=== PATIENT | male | born 1985 | race Caucasian/White ===

== ENCOUNTER 2016-10-15 16:52 | Emergency (ER) | payer OTHER ==
[2015-10-09 17:37] VITALS: BP 101/43; PULSE 76; O2SAT 98
[~2016-10-15 16:52] MED LIST: antidepressant
[2016-10-15 17:10] VITALS: BP 116/75; PULSE 107; O2SAT 98
== END 2016-10-15 18:38 | disposition left against medical advice (07) ==
LOC: SED 16:52
DX: Z53.21 Procedure and treatment not carried out due to patient leaving prior to being seen by health care provider (principal)

== ENCOUNTER 2017-03-14 18:11 | Emergency (ER) | payer OTHER ==
[~2017-03-14] VITALS: Ht 167.6 cm; Wt 77.3 kg
[2017-03-14 18:16] VITALS: BP 154/90; PULSE 95; RESP 16; O2SAT 97
[2017-03-14 18:52] LABS: BASOPHILS % (AUTO) 0.4 % (0-3); EOSINOPHILS % (AUTO) 1.3 % (0-5); Mean Corpuscular Hemoglobin 27.8 pg (27.0-35.0); Mean Corpuscular Volume 82.9 fL (81-100); NEUTROPHILS % (AUTO) 55.2 % (40-74); Platelet Count 244 bil/L (150-400)
--- NOTE | 2017-03-14 20:11 | ED.REPORT ---
[facility]-Medical Clearance Date of Service Mar 14, 2017 ED Provider: Arley Zimmer PA-C Maurisio is otherwise healthy 31-year-old male brought in by car salesperson for clearance for incarceration. Patient reports a history of IV heroin use. He also complains of night sweats, nausea, feeling ill, back pain. States he symptoms are alleviated by heroin. Also complains of sores forming on his skin. States he was told he needed to come the emergency department to be evaluated for endocarditis. He is concerned he has a "blood infection" Nursing Notes Stated Complaint: FIT FOR [facility] Chief Complaint: General Complaint Nursing Notes Reviewed: Yes Allergies: Coded Allergies: No Known Allergies (Verified Allergy, Unknown, 03/14/17) Miscellaneous Medications ([antidepressant]) General Time Seen by Provider: 19:42 Chief Complaint : Other (fit for detention) Past Medical History Past Medical History none reported Past Surgical History none reported Smoking History Current Every Day Smoker, Current Some Day Smoker Social History Drug Use: IV drugs, Meth Ambulatory Status Independent Review of Systems Review of Systems Note: Negative unless stated otherwise in history of present illness Physical Exam General: Well appearing, well developed, well nourished, no acute distress. Mildly anxious appearing, seated on the gurney in handcuffs. Head: Atraumatic, normocephalic. Eyes: No scleral icterus or injection. No discharge. Vision grossly intact. ENT: Voice clear, hearing grossly intact. Respiratory: Regular rate and rhythm. Breath sounds present, clear to auscultation and equal bilaterally. No respiratory distress. No increased work of breathing, speaks in complete sentences. Cardiovascular: Regular rate and rhythm, without murmur, gallop or rub despite careful auscultation. No pedal edema. Gastrointestinal: Abdomen flat and non-tender without guarding or rebound. Bowel sounds normoactive. Skin: Warm and dry. Many 1 cm areas of excoriation in various states of healing on the arms legs and shoulders. Tract foley visible on bilateral arms. No areas of redness, swelling and fluctuance. Neurological: Grossly nonfocal. Psychological: Alert and oriented. Speech appropriate, linear and logical. Behavior appropriate. Initial Vital Signs Vital Signs (First) Date Time Temp Pulse Resp B/P Pulse Ox O2 Delivery O2 Flow Rate FiO2 03/14/17 18:16 37.5 95 16 154/90 97 Room Air Elevated blood pressure Interpretation & Diagnostics Lab Results Interpretation Result Diagram: 03/14/17 1843 03/14/17 1843 Test 03/14/17 18:43 White Blood Count 5.4th/mm3 (3.8-10.1) Red Blood Count 5.15mil/mm3 (4.40-5.80) Hemoglobin 14.3g/dL (13.8-17.2) Hematocrit 42.7% (41.0-50.0) Mean Corpuscular Volume 82.9fL (81-100) Mean Corpuscular Hemoglobin 27.8pg (27.0-35.0) Mean Corpuscular Hemoglobin Concent 33.5% (32.0-37.0) Red Cell Distribution Width 13.3% (12.3-15.4) Platelet Count 244bil/L (150-400) Neutrophils (%) (Auto) 55.2% (40-74) Lymphocytes (%) (Auto) 34.1% (14-46) Monocytes (%) (Auto) 9.0% (4-12) Eosinophils (%) (Auto) 1.3% (0-5) Basophils (%) (Auto) 0.4% (0-3) Sodium Level 142mEq/L (134-144) Potassium Level 4.3mEq/L (3.5-5.2) Chloride Level 102mEq/L (97-108) Carbon Dioxide Level 24mmol/L (18-29) Blood Urea Nitrogen 8mg/dL (6-20) Creatinine 0.72mg/dL (0.76-1.27) Estimat Glomerular Filtration Rate 134mL/min (>59) Glucose Level 116mg/dL (60-99) Calcium Level 9.5mg/dL (8.5-10.1) Total Bilirubin 0.2mg/dL (0.0-1.2) Aspartate Amino Transf (AST/SGOT) 39U/L (0-50) Alanine Aminotransferase (ALT/SGPT) 49U/L (0-44) Alkaline Phosphatase 67U/L (25-150) Total Protein 7.9g/dL (6.4-8.4) Albumin 4.5g/dL (3.4-5.0) Hold Cano Top Tube Received (Received) Re-Eval/Medical Decision Med Decision/Clinical Course 31-year-old male brought in for clearance for incarceration. History of IV heroin abuse heroin abuse. Reports history of night sweats, back pain, nausea, vomiting. States he was told he might have a blood infection and should be checked out. The skull exam is benign, number of small excoriations arms legs chest. No evidence of cellulitis, abscess. Negative Heart murmur despite careful auscultation. Lung sounds clear and equal. Vital signs are normal, CBC and CMP show only minor abnormalities, not thought to be clinically relevant. Negative leukocytosis. I reassured against systemic illness, local cellulitis, endocarditis. I believe is medically cleared for incarceration. Advised follow-up with [facility] and provided emergency return precautions. Patient is disappointed with this finding. Discharge & Departure Impression: Primary Impression: Medical clearance for incarceration Additional Impressions: Heroin abuse Skin excoriation Disposition: Home Discharge Condition All VS Reviewed: Yes Condition: Stable Additional Instructions: Evaluation in the emergency department for medical clearance for detention includes interview, physical examination and lab work all of which are reassuring that you do not have an immediately dangerous medical condition. There is no indication that you have an infection. I recommend dressing the wounds under skin with antibiotic ointment and Band- Aids to prevent absent-minded picking. Follow-up with the [facility] for any further concerns. Return to the emergency department for fever, chest pain, vomiting. Referrals: Cj Ashford MD (PCP) EDSupervising Provider for APC: Trenton Greenwood MD copies to: Cj Ashford MD, Seth PA-C Mar 14, 2017 20:11
[2017-03-14 20:30] VITALS: BP 142/96; PULSE 88; RESP 16; O2SAT 98
[2017-03-14 20:31] VITALS: BP 142/96; PULSE 88; RESP 16; O2SAT 98
== END 2017-03-14 20:34 | disposition home or self-care (01) ==
LOC: SED 18:11
DX: Z02.89 Encounter for other administrative examinations (principal); F13.10 Sedative, hypnotic or anxiolytic abuse, uncomplicated; F42.4 Excoriation (skin-picking) disorder; F17.200 Nicotine dependence, unspecified, uncomplicated